=== PATIENT | female | born 1990 | race Caucasian/White ===

== ENCOUNTER 2023-05-04 20:04 | Inpatient (IN) | payer BC ==
[2023-05-04] MEDS ORDERED: Sodium Chloride 0.9% 10 ML Syringe FLUSH PRN (21:13)
[2023-05-04] MEDS ORDERED: Ondansetron 4 MG/2 ML SDV IVPUSH PRN (21:13)
[2023-05-04] MEDS ORDERED: Methylergonovine 0.2 MG/1 ML Amp IM PRN (21:13)
[2023-05-04] MEDS ORDERED: Lidocaine 1% 30 ML SDV INJECT ONE (21:13)
[2023-05-04] MEDS ORDERED: ceFAZolin 2 GM Vial IVPUSH ONE (21:13)
[2023-05-04] MEDS ORDERED: Lactated Ringers 1,000 ML IV ONE (21:13)
[2023-05-04] MEDS ORDERED: Citric Acid/Sodium Citrate Solution 30 ML Cup PO PRN (21:13)
[2023-05-04] MEDS ORDERED: Carboprost Tromethamine 250 MCG/1 ML Amp IM PRN (21:13)
[2023-05-04] MEDS ORDERED: Tranexamic Acid 1,000 MG in Sodium Chloride 0.9% 100 ML IV PRN (21:13)
[2023-05-04] MEDS ORDERED: Acetaminophen 325 MG Tab PO PRN (21:13)
[2023-05-04] MEDS ORDERED: Misoprostol 400 MCG (4 X 100 MCG TAB) RECTAL PRN (21:13)
[2023-05-04] MEDS ORDERED: Lactated Ringers 1,000 ML IV SCH (21:15)
[2023-05-04] MEDS ORDERED: Oxytocin/Normal Saline 30 UNIT/500 ML BAG IV SCH (21:15)
[2023-05-04 21:28] LABS: HEMATOCRIT 40.5 % (37.0-47.0); HEMOGLOBIN 13.7 g/dL (12.0-16.0); MEAN CORPUSCULAR HEMOGLOBIN 28.8 pg (27.0-34.0); MEAN CORPUSCULAR HGB CONC 33.8 g/dL (33.0-35.0); MEAN CORPUSCULAR VOLUME 85.1 fL (80-100); RED BLOOD CELL COUNT 4.76 10^6/uL (4.2-5.4); WHITE BLOOD CELL COUNT,WBC 9.6 10^3/uL (5.0-10.0)
[2023-05-05] MEDS ORDERED: Phenylephrine HCl In 0.9% NaCl 1 MG/10 ML Syringe IVPUSH PRN (01:57)
[2023-05-05] MEDS ORDERED: ePHEDrine 50 MG/ML SDV IVPUSH PRN (01:57)
[2023-05-05] MEDS ORDERED: Ropivacaine 200 MG in Premix Bag 1 BAG EPIDUR SCH (02:00)
[2023-05-05] MEDS ORDERED: Docusate Sodium 100 MG Cap PO PRN (04:46)
[2023-05-05] MEDS ORDERED: Zolpidem 5 MG Tab PO PRN (04:46)
[2023-05-05] MEDS ORDERED: Misoprostol 400 MCG (4 X 100 MCG TAB) RECTAL PRN (04:46)
[2023-05-05] MEDS ORDERED: Simethicone 80 MG Tab.Chew PO PRN (04:46)
[2023-05-05] MEDS ORDERED: Oxytocin 10 Units/1 ML SDV IM PRN (04:46)
[2023-05-05] MEDS ORDERED: Acetaminophen 325 MG Tab PO PRN (04:46)
[2023-05-05] MEDS ORDERED: Tranexamic Acid 1,000 MG in Sodium Chloride 0.9% 100 ML IV PRN (04:46)
[2023-05-05] MEDS ORDERED: Sodium Chloride 0.9% 10 ML Syringe FLUSH PRN (04:46)
[2023-05-05] MEDS ORDERED: Carboprost Tromethamine 250 MCG/1 ML Amp IM PRN (04:46)
[2023-05-05] MEDS ORDERED: Benzocaine/Menthol 20%-0.5% Spray 78 GM Cannister TOP PRN (04:46)
[2023-05-05] MEDS ORDERED: ceFAZolin 1 GM Vial IVPUSH SCH (05:00)
[2023-05-05] MEDS: Ibuprofen 800 MG Tab PO PRN ×2 (05:24→21:06)
[2023-05-05] MEDS: Prenatal Multivitamin with Calcium/Folic Acid/Iron Tab PO SCH (08:44)
[2023-05-06] MEDS: Ibuprofen 800 MG Tab PO PRN (05:22)
[2023-05-06] MEDS: Prenatal Multivitamin with Calcium/Folic Acid/Iron Tab PO SCH (08:03)
== END 2023-05-06 08:43 | disposition home or self-care (01) | DRG 560 ==
LOC: DL.OBCHECK 20:04 → DL.OB 20:50 → OBSVTOIN 05-05 03:54
PROVIDERS: ADMIT Obstetrics & Gynecology; ATTEND Obstetrics & Gynecology
PROC: 10E0XZZ Delivery of Products of Conception, External Approach (ICD-10-PCS; principal; 2023-05-05)
PROC: 3E0R3BZ Introduction of Anesthetic Agent into Spinal Canal, Percutaneous Approach (ICD-10-PCS; 2023-05-05)
PROC: 00HU33Z Insertion of Infusion Device into Spinal Canal, Percutaneous Approach (ICD-10-PCS; 2023-05-05)
DX: O42.02 Full-term premature rupture of membranes, onset of labor within 24 hours of rupture (principal); Z3A.37 37 weeks gestation of pregnancy; Z37.0 Single live birth; O99.824 Streptococcus B carrier state complicating childbirth
CPT/HCPCS: 01967; 36415; 51701; 59409; 84112; 85027; 87210; A9270-GY; J0690; J2590; J2795; J7120